=== PATIENT | male | born 1990 ===

== ENCOUNTER 2024-07-24 18:38 | Inpatient (IN) | payer OTHER, SELFPAY ==
[2024-07-24] VITALS (16 sets, daily range): BP systolic 102–141; BP diastolic 50–84; BMI 31.3
[2024-07-24] MEDS: CELEBREX 200 MG PO ×2 (15:54→21:25)
[2024-07-24] MEDS: NORMOSOL-R/PLASMALYTE-A 1000 IV (15:54)
[2024-07-24] MEDS: TYLENOL 1000 MG PO (15:54)
--- NOTE | 2024-07-24 22:00 | PTCARENOTE ---
2030 Received pt from PACU in bed; pt admitted under Dr. Dee for (R) Pre- Patella Bursa requiring I&D and IVABX. Medsurg orders. ID and WOC consulted. VSS, pain controlled. Dressing to Rt knee C/D/I, Neurovascular assessment intact. PMH reviewed by
this RN and pt. Care of plan discussed. Call yuan within reach.
[2024-07-24] MEDS: ANCEF 5 IV (23:24)
[2024-07-25] MEDS: ROXICODONE 5 MG PO ×3 (04:01→23:24)
[2024-07-25] MEDS: ANCEF 5 IV ×3 (05:59→23:20)
--- NOTE | 2024-07-25 07:26 | W.PN.ORTHO ---
Today's Communication / Plan
-
Weight-bear as tolerated
Fletcher wrap in place with packing (likely remove packing tomorrow)
Consult wound care nurse
Consult ID
Ice with elevation to control swelling and pain
Follow cultures
Aspirin for DVT prophylaxis
Likely home tomorrow
Assessment
.
Distal Motor Intact: Yes
Dressing:
Clean, dry and intact.
Assessment:
Right knee I & D w/ wound packing 07/24 Dr Dee
Plan
.
Surgery / Date: Right knee I & D w/ wound packing 07/24 Dr Dee
DVT Prophylaxis: Aspirin
Activity:
Out of bed.
PT/OT
Discharge Plan: Home
Subjective
.
.:
Patient resting comfortably.
Vital Signs and Labs
.
Vital Signs and Labs:
Temp Pulse Resp BP Pulse Ox
98.1 F 68 16 102/50 98
07/24/24 22:30 07/24/24 22:30 07/24/24 22:30 07/24/24 22:30 07/24/24 22:30
Cultures pending
[2024-07-25 07:50] VITALS: BP 105/57
--- NOTE | 2024-07-25 08:24 | CON.ID ---
Addendum entered and electronically signed by Mohini Lance MD 07/25/24 15:05:
I personally performed a history and physical exam of the patient and discussed management with the resident. I reviewed the resident's note and agree with the documented findings and plan of care HPI/CC.
Right pre-patellar soft tissue abscess POD#1 I+D.
-OR cx pending.
-Outpt wound cx: MSSA
-Continue IV cefazolin.
-Tomorrow, anticipate transition to cephalexin 500mg po qid through 08/02/24.
Original Note:
Consultation
-
Date/Time Consultation Requested: 07-25-24
Date/Time Consultation Performed: 07-25-24
Requesting Provider: Dr. Dee
Performing Provider: Dr. Lance
Reason for Consultation: right knee infected wound
Chief Complaint / Past History
Chief Complaint
right knee wound s/p I&D
History of Present Illness
Zana Rodriguez, age 34, was playing basketball earlier this month when he noticed his right knee started to hurt. He also noted a small 0.5 cm cut over the area with surrounding erythema - he is not sure about how he got the cut. He went to the
urgent care who recommended ice and rest. His pain, erythema and swelling continued to progress and his cut became a wound. He was started on amoxicillin-clavulanic acid on 07-16-24 but the wound continued to get worse. He underwent a right knee I&D
on 07-25-24, and is admitted for IV antibiotics. Wound culture outpatient grew hill-sensitive MSSA.
Past History
Past Medical History: Other (seasonal allergies)
Past Surgical History: Tonsilectomy (2002)
Allergy History:
No Known Drug Allergies Allergy (Verified 07/24/24 15:46)
Unknown
Medications Reviewed: Yes
Social History
Tobacco: Non-Smoker
Alcohol: Occasional
Drug: None
Family History
Family History: Not Pertinent
Review of Systems
Review of Systems
General: Negative Fever or Chills
HEENT: Negative Stiff Neck
Cardiovascular: Negative Chest Pain or Palpitations
Respiratory: Negative Dyspnea or Cough
Gasteroenterology: Negative Weight Loss, Nausea or Vomiting
Genital / Urological: Negative Dysuria
Endocrine: Negative Weight Change, Weakness or Fatigue
Musculoskeletal: Joint Pain (right knee) and Joint Swelling (right knee)
Skin / Hair / Nails: Negative Rash
Neurological: Negative Headache
Psychological: Negative Sleep Changes
Vital Signs
Temp Pulse Resp BP Pulse Ox
98.1 F 68 16 102/50 98
07/24/24 22:30 07/24/24 22:30 07/24/24 22:30 07/24/24 22:30 07/24/24 22:30
Physical Exam
Physical Exam
Constitutional: No Acute Distress and Comfortable
Head: Normocephalic
Eyes: Pupils Equal
Pharynx: Benign
Cardiovascular: Regular Rate and S1/S2
Pulmonary: Clear and Non Labored
Gastrointestinal: Soft, Non Tender and Non Distended
Musculoskeletal: Other (right knee swelling, tenderness, erythema)
Wound: None (post-surgical dressing right knee)
Neurological: Awake, Alert, Oriented and No Motor Deficits
Psychological: Calm
Microbiology Results
Micro:
07/24/24 17:24 Anaerobic Culture - Pending
Knee - Right
07/24/24 17:24 Wound Culture - Pending
Knee - Right Gram Stain - Pending
Assessment / Plan
Infected wound of right knee
- He was started on amoxicillin-clavulanic acid on 07-16-24 but the wound continued to get worse.
- Status-post right knee I&D on 07-24-24.
- Outpatient wound culture grew hill-sensitive MSSA.
- Continue cefazolin (day 2).
- Anticipated discharge tomorrow with oral antibiotics.
[2024-07-25] MEDS: ASPIRIN 325 MG PO (08:45)
[2024-07-25] MEDS: CLARITIN 10 MG PO (08:45)
[2024-07-25] MEDS: CELEBREX 200 MG PO ×2 (08:45→20:25)
--- NOTE | 2024-07-25 11:02 | CM ---
Reviewed the chart notes and spoke with the patient and his spouse at the bedside. The patient resides with his spouse and his children in a two story home with two steps to enter. The patient reports no DME/VN/SNF in the past. The patient
confirmed his pharmacy of choice is the [facility]. CM continues to be available to patient/family and is monitoring medical plan for needs at discharge.
Plan: Discharge plans will depend on the patient's progress. Home with no needs vs VN needs.
[2024-07-25 15:00] VITALS: BP 131/60
--- NOTE | 2024-07-25 15:16 | WOUNDNOTE ---
"WOC RN NOTE: Consult received for infected wound of right knee s/p I & D. Reviewed chart and TT with Dr. Dee. Plan if for ortho to removed DENICE and packing tomorrow. Dr. Dee requesting consult for home wound care recommendations. Plan is for Dr. Luiz (~) or on-call ortho to TT WOC RN when packing is removed. Spoke to patient who understands plan. Will follow up on 07/25. "
[2024-07-25 19:16] VITALS: BP 120/61
[2024-07-25 23:00] VITALS: BP 122/63
[2024-07-26 02:57] VITALS: BP 98/55
[2024-07-26 03:04] VITALS: BP 98/55
[2024-07-26] MEDS: ROXICODONE 5 MG PO ×2 (05:48→17:58)
[2024-07-26] MEDS: ANCEF 5 IV ×3 (06:02→23:19)
[2024-07-26 07:40] VITALS: BP 123/76
[2024-07-26] MEDS: CLARITIN 10 MG PO (07:53)
[2024-07-26] MEDS: CELEBREX 200 MG PO ×2 (07:53→20:26)
[2024-07-26] MEDS: ASPIRIN 325 MG PO (07:53)
[2024-07-26] MEDS: DILAUDID 0.25 MG IV (08:09)
--- NOTE | 2024-07-26 08:26 | W.PN.ORTHO ---
Today's Communication / Plan
-
34M POD1 right knee bursectomy and packing with Dr. Dee
-seen at [facility] with wound management; will place formal recommendations but likely iotaform packing loose with compression.
-ASA for DVT ppx, 81 BID
-increased pain during dressing change- new order placed for breakthrough of dilaudid; ensure pain controlled prior to DC
-ID following and WC following; appreciate recs.
-intraop cultures pending
Assessment
.
Distal Motor Intact: Yes
Dressing:
Dressing removed showing 1cm circumferential open wound with clear bloody fluid, packing removed. NVI L3-S1. No purulence
Plan
.
Surgery / Date: Right knee I & D w/ wound packing 07/24 Dr Dee
Activity:
Out of bed.
PT/OT
Subjective
.
.:
Patient resting. in Moderate discomfort
Vital Signs and Labs
.
Vital Signs and Labs:
Temp Pulse Resp BP Pulse Ox
97.9 F 61 18 123/76 98
07/26/24 07:40 07/26/24 07:40 07/26/24 07:40 07/26/24 07:40 07/26/24 07:40
--- NOTE | 2024-07-26 09:10 | WOUNDNOTE ---
[facility] RN NOTE: Patient visited with LINDA Curran s/p right bursectomy and packing with Dr. Dee on 07/24. Approx 30 cm of packing strip was removed from the wound. Wound appears to tunnel at 12 oclock. Wound base is 2 x2 with clean red tissue
and some serosanguineous drainage. Mild erythema noted around wound, but otherwise surrounding skin dry and intact. George sent picture to Dr. Dee via TT. Patient medicated with Oxycodone approx 2 hours prior to packing removal. Dilaudid IV was
ordered and given prior to attempt to re-pack wound with 1/4 inch Iodoform packing gauze. present and was instructed on wound care plan. Upon attempt to pack wound, patient became distressed, tearful, and rated pain 10/10 even with gentle
pressure. Packing strip gently placed over wound bed and covered with dry dressing and DENICE bandage applied. Patient reported some relief after application of DENICE wrap. Dr. Dee and George made aware that patient could not tolerate packing. RN
Linnea also made aware. Will continue to follow up with patient as needed.
--- NOTE | 2024-07-26 11:05 | W.PN.ID1 ---
Date of Service
Date of Service: July 26, 2024
Today's Communication
Continue cefazolin.
Assessment / Plan
Right pre-patellar soft tissue abscess POD#1 I+D.
-OR cx: Staph aureus
-Outpt wound cx: MSSA
-Continue IV cefazolin (d3)
-At time of discharge, transition to cephalexin 500mg po qid through 08/02/24.
- Pain control.
Chief Complaint
-: Other (abscess)
Subjective / Review of Systems
DC planning cancelled due to severe pain during dressing change.
Vital Signs / Physical Exam
Vital Signs
Vital Signs
Temp Pulse Resp BP Pulse Ox
97.9 F 61 18 123/76 98
07/26/24 07:40 07/26/24 07:40 07/26/24 07:40 07/26/24 07:40 07/26/24 07:40
Physical Exam
Constitutional: No Acute Distress
Gastrointestinal: Soft, Non Tender and Non Distended
Extremities: Negative Edema
Wound: Other (right knee dressing dry)
Objective Data
Lab Data
Most recent labs reviewed.
Micro Results:
07/24/24 17:24 Anaerobic Culture - Preliminary
Knee - Right Culture pending. Anaerobic cultures are examined after 3
days incubation. Additional information to follow.
07/24/24 17:24 Wound Culture - Preliminary
Knee - Right Staphylococcus aureus
Gram Stain - Preliminary
[2024-07-26 15:50] VITALS: BP 125/73
--- NOTE | 2024-07-26 16:07 | CM ---
Reviewed the chart notes. Patient remains for pain control. CM continues to be available to patient/family and is monitoring medical plan for needs at discharge.
Plan: Discharge to home once pain is controlled.
[2024-07-26 23:26] VITALS: BP 103/62
[2024-07-27] MEDS: ANCEF 5 IV (06:21)
[2024-07-27 07:50] VITALS: BP 124/68
--- NOTE | 2024-07-27 08:31 | W.PN.ORTHO ---
Today's Communication / Plan
-
ADDENDUM (07/27/24 @11:07am):
OR culture +MRSA. Will change antibiotic on discharge to doxycycline 100mg BID x10 days. This was sent to the patient's pharmacy via [facility]. Can still discharge home today.
34M POD2 right knee bursectomy and packing with Dr. Dee
-dressing removed and packing changed. new dressing applied. reviewed wound care with at bedside who feels comfortable with dressing change
-Aspirin 325mg daily for DVT prophylaxis
-Continue with ice, elevation, and pain medications as needed
-patient tolerated dressing change much better today
-OR cultures +Staph aureus. Outpatient culture +MSSA
-ID recommends discharge on cephalexin 500mg 4 times per day through 08/02/24
-prescriptions for oxycodone and cephalexin sent to patient's pharmacy via [facility]
-Follow up outpatient next week (appointment already scheduled)
-Plan for discharge home today
Assessment
.
Distal Motor Intact: Yes
Dressing:
Clean, dry and intact.
Plan
.
Surgery / Date: Right knee I & D w/ wound packing 07/24 Dr Dee
DVT Prophylaxis: Aspirin
Activity:
Out of bed.
PT/OT
Subjective
.
.:
Patient is resting comfortably in bed this morning. He reports that his pain is much improved compared to yesterday. He reports that his dressing was last changed yesterday morning. is at bedside with him this AM.
Vital Signs and Labs
.
Vital Signs and Labs:
Temp Pulse Resp BP Pulse Ox
97.8 F 59 16 124/68 99
07/27/24 07:50 07/27/24 07:50 07/27/24 07:50 07/27/24 07:50 07/27/24 07:50
Physical Exam
-
Dressing removed showing 1cm circumferential open wound with clear bloody fluid, packing removed. NVI L3-S1. No purulence
[2024-07-27] MEDS: ASPIRIN 325 MG PO (09:39)
[2024-07-27] MEDS: CELEBREX 200 MG PO (09:39)
[2024-07-27] MEDS: CLARITIN 10 MG PO (09:40)
[2024-07-27] MEDS: ROXICODONE 5 MG PO (09:57)
--- NOTE | 2024-07-27 10:56 | W.PN.ID1 ---
Date of Service
Date of Service: July 27, 2024
Today's Communication
Can dc home on doxycycline 100mg po bid x 10 days.
Assessment / Plan
Right pre-patellar soft tissue abscess POD#1 I+D.
-OR cx: MRSA
-(Outpt wound cx: ROBERTO)
-Discontinue IV cefazolin (d3)
-Can dc home on doxycycline 100mg po bid x 10 days.
- Discussed importance of hand-hygiene 9all family members) , keep wound covered to prevent transmission MRSA to household .
Chief Complaint
-: Other (abscess)
Subjective / Review of Systems
Tolerated dressing change this am.
Vital Signs / Physical Exam
Vital Signs
Vital Signs
Temp Pulse Resp BP Pulse Ox
97.8 F 59 16 124/68 99
07/27/24 07:50 07/27/24 07:50 07/27/24 07:50 07/27/24 07:50 07/27/24 07:50
Physical Exam
Constitutional: No Acute Distress
Pulmonary: Clear
Gastrointestinal: Non Tender
Wound: Other (Right knee dressing dry.)
Objective Data
Lab Data
Most recent labs reviewed.
Micro Results:
07/24/24 17:24 Wound Culture - Preliminary
Knee - Right Staph aureus MRSA
Gram Stain - Preliminary
07/24/24 17:24 Anaerobic Culture - Preliminary
Knee - Right Culture pending. Anaerobic cultures are examined after 3
days incubation. Additional information to follow.
Care Review
Plan reviewed with: Physician (AMBER Knapp)
[2024-07-27 11:00] VITALS: BP 127/75
[2024-07-27] MEDS: VIBRAMYCIN 100 MG PO (11:09)
--- NOTE | 2024-07-27 11:42 | CM ---
Patient seen at bedside with family member. patient for discharge home today. Patient with no needs at this time. CM will continue to follow for discharge planning needs.
Plan; home with no needs anticipated
== END 2024-07-27 12:05 | disposition home or self-care (01) | DRG 501 ==
LOC: 2 NORTH 18:38
PROVIDERS: ADMITTING PHYSICIAN Specialist; FAMILY PHYSICIAN Internal Medicine; OTHER PHYSICIAN Internal Medicine Infectious Disease
PROC: 0MBN0ZZ Excision of Right Knee Bursa and Ligament, Open Approach (ICD-10-PCS; 2024-07-24)
DX: M71.161 Other infective bursitis, right knee (principal); I96 Gangrene, not elsewhere classified; M71.061 Abscess of bursa, right knee; J30.2 Other seasonal allergic rhinitis; B95.62 Methicillin resistant Staphylococcus aureus infection as the cause of diseases classified elsewhere
CPT/HCPCS: 87070; 87075; 87147; 87186; 87205